=== PATIENT | male | born 1980 | race Caucasian/White ===

== ENCOUNTER 2023-11-01 10:08 | Emergency (ER) | payer BC ==
[2023-11-01] MEDS ORDERED: KETOROLAC 30 MG/ML INJ ONE (10:38)
[2023-11-01] MEDS ORDERED: dexAMETHasone 10 MG/ML VIAL ONE (10:38)
--- NOTE | 2023-11-01 11:08 | EDPHYS ---
Physician Documentation [facility] Name: Reyes Mejia Age: 43 yrs Sex: Male : 1980 Arrival Date: 11/01/2023 Time: 10:08 Bed 20 Private MD: ED Physician Dave Simons HPI: 10/31 10:35 This 43 yrs old Male presents to ER via Ambulatory with complaints of Low rn Back Pain. 10:35 43-year-old male with past medical history of [place], hypertension presents to the rn emergency department with complaints of low back pain. Patient states that 5 days ago he started feeling an achy burning pain in his right lower back that radiates across his hip and down the front of his thigh. He states that the pain has since worsened and is currently rated at a 7/10 and that he has developed a rash on his right lower back and buttock area. He additionally reports having kidney stones in the past but states that these symptoms feel different. Patient endorses having chickenpox as a child but states that he has never had shingles in the past. Denies fever, chills, headache, chest pain, shortness of breath, nausea, vomiting, urinary symptoms.. Historical: - Allergies: 10:18 No Known Allergies; ap3 - Home Meds: 10:18 Brilinta oral [Active]; Metoprolol Tartrate Oral [Active]; ap3 - PMHx: 10:18 Myocardial infarction; Hypertensive disorder; ap3 - Immunization history:: Client reports having NOT received the Covid vaccine. - Infectious Disease History:: Denies. - Social history:: Smoking status: Patient reports use of chewing tobacco. ROS: 10:45 Constitutional: Negative for fever, chills, and weight loss, Cardiovascular: Negative rn for chest pain, palpitations, and edema, Respiratory: Negative for shortness of breath, cough, wheezing, and pleuritic chest pain, Abdomen/GI: Negative for abdominal pain, nausea, vomiting, diarrhea, and constipation, Back: Negative for injury : Negative for injury, bleeding, discharge, and swelling, MS/Extremity: Negative for injury and deformity, 10:45 Back: Positive for Pain and nonpruritic rash of the right lower back and buttock, 10:45 MS/extremity: Positive for rash, Achy and burning pain radiating from the low back, 10:45 Skin: Positive for rash, 10:45 All other systems are negative, Exam: 10:49 Constitutional: This is a well developed, well nourished patient who is awake, alert, rn and in no acute distress. Cardiovascular: Regular rate and rhythm Respiratory: Lungs have equal breath sounds bilaterally, clear to auscultation and percussion. No rales, rhonchi or wheezes noted. No increased work of breathing, no retractions or nasal flaring. Abdomen/GI: Soft, non-tender, with normal bowel sounds. No distension or tympany. No guarding or rebound. No evidence of tenderness throughout. 10:49 Back: pain, that is moderate, of the right low back, CVA tenderness, is absent, vertebral tenderness, is not appreciated, muscle spasm, is not present, 10:49 Musculoskeletal/extremity: Extremities: 10:49 Musculoskeletal/extremity: Exam is negative for injury, swelling, 10:49 Skin: Appearance: normal except for affected area, zoster, on the buttocks and right leg, 10:49 Neuro: Exam negative for focal neuro deficits, dizziness, weakness, Vital Signs: 10:20 BP 137 / 96; Pulse 62; Resp 17 S; Pulse Ox 99% ; Weight 104.33 kg (R); Height 5 ft. 10 kc6 in. (R); 10:20 Body Mass Index 33.00 (104.33 kg, 177.8 cm) kc6 MDM: 10:11 Patient medically screened. rn 11:06 Differential diagnosis: Shingles. Data reviewed: vital signs, nurses notes, and as a rn result, I will discharge patient. Counseling: I had a detailed discussion with the patient and/or guardian regarding the historical points, exam findings, and any diagnostic results supporting the discharge/admit diagnosis, the need for outpatient follow up, to return to the emergency department if symptoms worsen or persist or if there are any questions or concerns that arise at home. Special discussion: I discussed with the patient/guardian in detail that at this point there is no indication for admission to the hospital. It is understood, however, that if the symptoms persist or worsen the patient needs to return immediately for re-evaluation. Administered Medications: 10:43 Drug: Ketorolac IM 30 mg IM once Route: IM; Site: right ventrogluteal; rs5 11:04 Follow up: Response: No adverse reaction kc6 10:44 Drug: Dexamethasone IM 10 mg IM once Route: IM; Site: right deltoid; rs5 11:04 Follow up: Response: No adverse reaction kc6 Disposition Summary: 11/01/23 11:07 Discharge Ordered Notes: Location: Home rn Problem: new rn Symptoms: have improved rn Condition: Stable rn Diagnosis - Zoster without complications rn Followup: rn - With: Private Physician - When: As needed - Reason: Recheck today's complaints, Re-evaluation by your physician Discharge Instructions: - Discharge Summary Sheet rn - Neuropathic Pain rn - Shingles rn Forms: - Medication Reconciliation Form rn - Antibiotic administration internship - Prescription Opioid Use rn - Patient Portal Instructions rn - Leadership Thank You Letter rn Prescriptions: - gabapentin 100 mg Oral capsule - take 1 capsule ORAL route every 12 hours As needed; 14 capsule; Refills: 0, rn Product Selection Permitted - Acyclovir 800 mg Oral Tablet - take 1 tablet ORAL route 5 times per day for 10 days; 50 tablet; Refills: 0, rn Product Selection Permitted - Medrol (Elbert) 4 mg Oral Tablets, Dose Pack - take 1 tablet ORAL route as directed - follow package instructions; 1 packet; rn Refills: 0, Product Selection Permitted Signatures: Dave Simons MD MD rn Prokisch, Amanda RN RN ap3 Smitha Ramirez RN RN kc6 Dell Pham, RN RN rs5
--- NOTE | 2023-11-01 11:08 | ER ---
Nurse's Notes [facility] Name: Reyes Mejia Age: 43 yrs Sex: Male : 1980 Arrival Date: 11/01/2023 Time: 10:08 Bed 20 Private MD: Diagnosis: Zoster without complications Presentation: 10/31 10:16 Chief complaint: Patient states: he started having right sided low back pain Saturday ap3 10/30/23. Patient currently rates his pain as a 8/10 on the pain scale. patient reports the pain radiates down his right leg. Coronavirus screen: At this time, the client does not indicate any symptoms associated with coronavirus-19. Ebola Screen: No symptoms or risks identified at this time. Risk Assessment: Do you want to hurt yourself or someone else? Patient reports no desire to harm self or others. Onset of symptoms was October 30, 2023. 10:16 Method Of Arrival: Ambulatory ap3 10:20 Initial Sepsis Screen: Does the patient meet any 2 criteria? No. Patient's initial kc6 sepsis screen is negative. Does the patient have a suspected source of infection? No. Patient's initial sepsis screen is negative. 10:20 Acuity: LIAM 3 kc6 Triage Assessment: 10:18 General: Appears uncomfortable, Behavior is calm, cooperative, appropriate for age. ap3 Pain: Complains of pain in right low back Pain radiates to right leg Pain currently is 8 out of 10 on a pain scale. Pain began gradually, 2-3 days ago. Neuro: Level of Consciousness is awake, alert, obeys commands, Oriented to person, place, time, situation, Appropriate for age Speech is normal. Cardiovascular: Patient's skin is warm and dry. Respiratory: Airway is patent Respiratory effort is even, unlabored, Respiratory pattern is regular, symmetrical. Historical: - Allergies: 10:18 No Known Allergies; ap3 - Home Meds: 10:18 Brilinta oral [Active]; Metoprolol Tartrate Oral [Active]; ap3 - PMHx: 10:18 Myocardial infarction; Hypertensive disorder; ap3 - Immunization history:: Client reports having NOT received the Covid vaccine. - Infectious Disease History:: Denies. - Social history:: Smoking status: Patient reports use of chewing tobacco. Screenin:18 [facility] ED Fall Risk Assessment (Adult) History of falling in the last 3 months, kc6 including since admission No falls in past 3 months (0 pts) Confusion or Disorientation No (0 pts) Intoxicated or Sedated No (0 pts) Impaired Gait No (0 pts) Mobility Assist Device Used No (0 pt) Altered Elimination No (0 pt) Score/Fall Risk Level 0 - 2 = Low Risk. Abuse screen: Denies threats or abuse. Denies injuries from another. Nutritional screening: No deficits noted. Tuberculosis screening: No symptoms or risk factors identified. Assessment: 10:18 General: Appears in no apparent distress. uncomfortable, well groomed, well developed, kc6 Behavior is calm, cooperative, appropriate for age. Pain: Complains of pain in left low back Pain radiates to left leg. Neuro: Level of Consciousness is awake, alert, obeys commands, Oriented to person, place, time, situation, Appropriate for age. Cardiovascular: Capillary refill < 3 seconds. Respiratory: Airway is patent Trachea midline Respiratory effort is even, unlabored, Respiratory pattern is regular, symmetrical. GI: No signs and/or symptoms were reported involving the gastrointestinal system. : Reports pain in left in lower back. EENT: No signs and/or symptoms were reported regarding the EENT system. Derm: No signs and/or symptoms reported regarding the dermatologic system. Skin is intact, is healthy with good turgor, Skin is dry, Skin is pale, Skin temperature is warm. Musculoskeletal: No signs and/or symptoms reported regarding the musculoskeletal system. Circulation, motion, and sensation intact. Capillary refill < 3 seconds, Range of motion: intact in all extremities. 11:34 Reassessment: Patient appears in no apparent distress at this time. No changes from kc6 previously documented assessment. Patient and/or family updated on plan of care and expected duration. Pain level reassessed. Patient is alert, oriented x 3, equal unlabored respirations, skin warm/dry/pink. Patient states feeling better. Patient states symptoms have improved. Vital Signs: 10:20 BP 137 / 96; Pulse 62; Resp 17 S; Pulse Ox 99% ; Weight 104.33 kg (R); Height 5 ft. 10 kc6 in. (R); 10:20 Body Mass Index 33.00 (104.33 kg, 177.8 cm) [facility] ED Course: 10:10 Patient arrived in ED. ra3 10:11 Dave Simons MD is Attending Physician. rn 10:12 Smitha Ramirez, ENA is Primary Nurse. kc6 10:18 Patient has correct armband on for positive identification. Bed in low position. Call kc6 light in reach. Side rails up X 1. Adult w/ patient. Pulse ox on. NIBP on. Pillow given. 10:19 Arm band placed on right wrist. ap3 10:20 Triage completed. kc6 11:34 No provider procedures requiring assistance completed. Patient did not have IV access kc6 during this emergency room visit. Administered Medications: 10:43 Drug: Ketorolac IM 30 mg IM once Route: IM; Site: right ventrogluteal; rs5 11:04 Follow up: Response: No adverse reaction kc6 10:44 Drug: Dexamethasone IM 10 mg IM once Route: IM; Site: right deltoid; rs5 11:04 Follow up: Response: No adverse reaction kc6 Medication: 11:34 VIS not applicable for this client. kc6 Outcome: 11:07 Discharge ordered by . rn 11:34 Discharged to home ambulatory, with significant other, kc6 11:34 Condition: good 11:34 Discharge instructions given to patient, significant other, Instructed on discharge instructions, follow up and referral plans. medication usage, Demonstrated understanding of instructions, follow-up care, medications, Prescriptions given X 3, 11:35 Patient left the ED. kc6 Signatures: Dave Simons MD MD rn Prokisch, Amanda, RN RN ap3 Smitha Raimrez RN RN kc6 Dell Pham RN RN 5 Madelin Luciano ra3
[2023-11-01 11:39] VITALS: BP 137/96; O2SAT 99
== END 2023-11-01 11:35 | disposition home or self-care (01) ==
LOC: ER 10:08
DX: B02.9 Zoster without complications (principal); Z72.0 Tobacco use
CPT/HCPCS: 96372; 99284; J1100